=== PATIENT | male | born 1975 | race Caucasian/White ===

== ENCOUNTER 2020-03-27 09:57 | Outpatient (CLI) | payer OTHER, SELFPAY ==
--- NOTE | ~2020-03-27 | XR_ITS ---
EXAMINATION: XR finger 4th LT min 2V INDICATION: Left fourth finger pain TECHNIQUE: Four views of the left fourth finger are obtained. COMPARISON: None available FINDINGS: There is no fracture, dislocation, or subluxation. The bones, soft tissues, and joint space s are normal. IMPRESSION: 1. No acute osseous abnormality. Reviewed, dictated and finalized at location A.
== END 2020-03-27 09:58 | disposition home or self-care (01) ==
LOC: ANHIMG 10:04
PROVIDERS: PCP Family Medicine; Visit Provider Nurse Practitioner Family
DX: M79.89 Other specified soft tissue disorders (principal)
CPT/HCPCS: 73140

== ENCOUNTER 2021-01-22 14:46 | Emergency (ER) | payer OTHER, SELFPAY ==
--- NOTE | 2021-01-22 15:02 | ECG_ITS ---
Measurements Intervals [place] Rate: 63 P: 61 TX: 153 QRS: 44 QRSD: 109 T: 21 QT: 402 QTc: 413 Interpretive Statements SINUS RHYTHM INCOMPLETE RIGHT BUNDLE BRANCH BLOCK BASELINE ARTIFACT- V5 BORDERLINE ECG Electronically Signed On 01-23-2021 8:33:21 CDT by Luis Manuel Pham D.O.
[2021-01-22 15:23] VITALS: BP 152/95; PULSE 76; RESP 20; TEMP 37.1; O2SAT 100
--- NOTE | 2021-01-22 16:49 | ED.GENADULT ---
HPI - General Adult General Chief complaint: Unspecified Stated complaint: HEART RACING Time Seen by Provider: 01/22/21 15:00 Source: patient and RN notes reviewed Mode of arrival: ambulatory Limitations: no limitations History of Present Illness HPI narrative: Patient presents today complaining of one episode that lasted 15 to 20 minutes with symptoms to include lightheadedness, nausea, and increased heart rate. Patient states that during this time he was on a conference call at home when he started experiencing the symptoms. Once the symptoms began, he stood up from the chair that he was sitting in to see if this would help resolve his symptoms. He then states that he worked to calm myself down , then took a seat again when it did not. Denies chest pain, shortness of breath, dizziness, vision changes, abdominal pain, vomiting. During this 15 to 20-minute, patient also reports that he had a bit of numbness in his left fourth finger that has since resolved. This past summer he had some severe inflammation in the same finger that he is unsure if it is related. Patient denies any current symptoms. When asked how he is feeling currently patient states, pretty calm and a, complete 180 to how he was feeling earlier. He denies any cardiac history, hypertension, high cholesterol, palpitations, tachycardia. History of hyperthyroidism. MD complaint: Racing heart Related Data Allergies Allergy/AdvReac Type Severity Reaction Status Date / Time No Known Allergies Allergy Verified 04/08/20 13:01 Review of Systems Review of Systems: Narrative: CONSTITUTIONAL: Denies body aches, fever, chills, or sweats. EYES: Denies visual changes, redness, or discharge. ENT: Denies rhinorrhea, congestion, sore throat, or otalgia. CARDIOVASCULAR: Denies chest pain, palpitations, or edema.+ Racing heartbeat RESPIRATORY: Denies cough or dyspnea. GASTROINTESTINAL: Denies abdominal pain, vomiting, or diarrhea.+ Nausea GENITOURINARY: Denies dysuria or hematuria. SKIN: Denies rash, itching, or wounds. MUSCULOSKELETAL: Denies back pain, joint pain, or myalgia. NEUROLOGIC: Denies headache, tingling, or weakness.+ Lightheadedness, + numbness to left fourth finger PSYCH: Denies depression or anxiety. [facility] Past Medical History Medical History (Updated 01/22/21 @ 17:14 by Betsy Quiroga, DES, ) Hyperthyroidism Family History Family History Other Diabetes mellitus Family history of coronary artery disease Family history of malignant neoplasm of esophagus Hypertension Social History Social History Alcohol intake: current Comments At time of signature, I have reviewed and agree with nursing past medical, surgical, social and family history unless otherwise noted. Please see nursing chart for further information. There is no relevant family history pertinent to the presenting complaint Exam Narrative: Exam Narrative: GENERAL: Well-appearing, well-nourished, and in no acute distress. HEAD: Normocephalic, atraumatic. EYES: EOMI. PERRL. No redness or drainage. Conjunctivae normal. ENT: Mucous membranes pink and moist. NECK: Normal AROM. Supple. No lymphadenopathy. CHEST: No respiratory distress. Clear to auscultation. Chest is nontender. HEART: Regular rate and rhythm. No murmur, rubs, or gallops appreciated. S1 S2. Normal peripheral pulses. ABDOMEN: Soft, nontender, nondistended, normal active bowel sounds. MUSCULOSKELETAL: No bony tenderness. EXTREMITIES: Normal range of motion. No edema. Handgrips equal and strong. Distal sensation intact in all fingers of both hands. Full range of motion of all fingers. Capillary refill normal. Radial pulses normal. SKIN: Warm, dry, no rash. Capillary refill normal. Normal skin turgor. NEURO: No focal deficits. Alert and oriented x3. Gait steady. PSYCH: Normal affect. No signs o
== END 2021-01-22 15:35 | disposition home or self-care (01) ==
PROVIDERS: Emergency Provider Nurse Practitioner
DX: R00.0 Tachycardia, unspecified (principal); E05.90 Thyrotoxicosis, unspecified without thyrotoxic crisis or storm; I45.10 Unspecified right bundle-branch block
CPT/HCPCS: 93005; 99213; G0463

== ENCOUNTER 2021-02-17 12:43 | Outpatient (CLI) | payer OTHER, SELFPAY ==
--- NOTE | ~2021-02-17 | US_ITS ---
EXAMINATION: US carotid duplex BI DATE: 02/17/2021 14:13 INDICATION: Dizziness, giddiness and disturbance of skin sensation. TECHNIQUE: Grayscale, color Doppler, and pulsed Doppler images of the cervical carotid arteries were obtained. The degree of vessel stenosis is placed in one of the following categories: normal, <50%, 5 0-69%, >=70% but less than near-occlusion, near-occlusion, or total occlusion. Note that percent sten osis relative to normal distal artery lumen diameter is indirectly measured from velocity measurement s as described by Shon, et al. Radiology 2003; 229:340-346. COMPARISON: None. FINDINGS: RIGHT: The right common carotid artery (CCA) peak systolic velocity (PSV) is 117 cm/s. The right internal ca rotid artery (ICA) PSV is 134 cm/s. The right ICA end-diastolic velocity (EDV) is 31 cm/s. The right ICA/CCA PSV ratio is 1.1. Grayscale and color Doppler images including secondary Doppler criteria yie ld an estimate of <50% diameter reduction from minimal plaque in the ICA. The external carotid artery (ECA) PSV is 159 cm/s. There is antegrade flow in the right vertebral artery. LEFT: The left CCA PSV is 132 cm/s. The left ICA PSV is 109 cm/s. The left ICA EDV is 32 cm/s. The left ICA /CCA PSV ratio is 0.8. Grayscale and color Doppler images yield an estimate of <50% diameter reductio n from minimal plaque in the ICA. The ECA PSV is 121 cm/s. There is antegrade flow in the left verteb ral artery. IMPRESSION: 1. <50% stenosis from minimal plaque in the right internal carotid artery. 2. <50% stenosis from minimal plaque in the left internal carotid artery. Reviewed, dictated and finalized at location A.
--- NOTE | 2021-02-17 13:05 | ECHO_ITS ---
Patient Info Name: Rashaun Castano Age: 45 years : 1975 Gender: Male Ht: 75 in Wt: 255 lbs BSA: 2.50 m2 HR: 58 bpm BP: 136 / 88 mmHg Technical Quality: Good Exam Date: 02/17/2021 1:17 PM Exam Location: [facility] Patient Status: Outpatient Admit Date: 02/17/2021 Staff Ordering Physician: Glory Grissom [employer] Professor: Nancy Gomez RDCS Attending Provider: Glory Grissom Referring Physician: Praveena KELLY; Exam Type: CA echo doppler color flow Study Info Indications - DIZZINESS AND GIDDINESS Complete two-dimensional, color flow and Doppler transthoracic echocardiogram is performed. Summary 1. Complete two-dimensional, color flow and Doppler transthoracic echocardiogram is performed. 2. Left ventricular chamber dimension is normal. 3. Left ventricular systolic function is normal, estimated at 60-65%. 4. The left ventricular diastolic function is normal. 5. E/e' 8 is minimally elevated. 6. Circumscribed echogenic mass measuring 0.6 cm x 0.9 cm attached to mid lateral left atrial wall that is non-obstructive, could be artifact vs atrial myxoma. Consider CTA of heart or MRI of heart or ZAMZAM if clinically indicated. 7. There is trace mitral valve regurgitation. 8. No pulmonary hypertension, estimated pulmonary arterial systolic pressure is 24 mmHg. Left Ventricle E/e' 8 is minimally elevated. Left ventricular chamber dimension is normal. Left ventricular systolic function is normal, estimated at 60-65%. The left ventricular diastolic function is normal. Right Ventricle Right ventricular chamber dimension is normal. Right ventricular systolic function is normal. Left Atria Circumscribed echogenic mass measuring 0.6 cm x 0.9 cm attached to mid lateral left atrial wall that is non-obstructive, could be artifact vs atrial myxoma. Consider CTA of heart or MRI of heart or ZAMZAM if clinically indicated. Left atrial chamber dimension is normal. Right Atria Right atrial chamber dimension is normal. Aortic Valve The aortic valve is trileaflet. There is no aortic valve stenosis. There is no aortic valve regurgitation. Pulmonic Valve There is no pulmonic regurgitation. Mitral Valve There is no mitral valve stenosis. There is trace mitral valve regurgitation. Tricuspid Valve There is no tricuspid valve regurgitation. No pulmonary hypertension, estimated pulmonary arterial systolic pressure is 24 mmHg. Pericardium/Pleural There is no pericardial effusion. Inferior Vena Cava Normal inferior vena cava with >50% collapse upon inspiration consistent with normal right atrial pressure, 5 mmHg. Aorta The aortic root size at the sinus of Valsalva is normal. Left Ventricular Outflow Tract Name Value Normal LVOT 2D LVOT Diameter 2.1 cm LVOT Doppler LVOT Peak Gradient 5 mmHg LVOT Mean Gradient 3 mmHg LVOT VTI 25 cm LVOT VTI/AV VTI Ratio 1.0 LVOT Stroke Volume 84 ml LVOT CO 15.8 l/min
== END 2021-02-17 12:44 | disposition home or self-care (01) ==
PROVIDERS: PCP Family Medicine; Visit Provider Nurse Practitioner Family
DX: R42 Dizziness and giddiness (principal); R00.0 Tachycardia, unspecified
CPT/HCPCS: 93306; 93880

== ENCOUNTER 2021-02-27 14:30 | Emergency (ER) | payer OTHER, SELFPAY ==
[2021-02-27 14:33] VITALS: BP 127/87; PULSE 74; RESP 20; TEMP 36.1; O2SAT 98
[2021-02-27 16:08] VITALS: BP 120/82; PULSE 76; RESP 18; TEMP 36.7; O2SAT 100
--- NOTE | 2021-02-27 16:19 | ED.GENADULT ---
HPI - General Adult General Chief complaint: Wound/Laceration Stated complaint: FINGER LAC Time Seen by Provider: 02/27/21 15:24 Source: patient and RN notes reviewed Mode of arrival: ambulatory Limitations: no limitations History of Present Illness HPI narrative: Patient is a 45-year-old male who presents with injuries to the finger sustained from using a hedge tremor patient cut the distal phalanxes of the through fifth distal phalanxes patient notes laceration along the ulnar aspect of the nail of the fourth digit with minor abrasions to the 2 other digits. Patient notes his tetanus is not up-to-date denies other injuries or complaints Related Data Allergies Allergy/AdvReac Type Severity Reaction Status Date / Time No Known Allergies Allergy Verified 02/27/21 14:35 Review of Systems Review of Systems: All systems reviewed & are unremarkable except as noted in HPI and below PMFSH Past Medical History Medical History BMI 33.0-33.9,adult Hyperthyroidism Family History Family History Other Diabetes mellitus Family history of coronary artery disease Family history of malignant neoplasm of esophagus Hypertension Social History Social History Smoking status: Never smoker Alcohol intake: current Exam Narrative: Exam Narrative: GENERAL: Well-appearing, well-nourished, and in no acute distress. HEAD: Normocephalic, atraumatic. EYES: PERRLA and EOMI. ENT: Nares clear, no rhinorrhea or epistaxis. Mucous membranes moist. EXTREMITIES: Normal range of motion. No edema. SKIN: Warm, dry, no rash. 2 superficial abrasions of the digits involving 1 on the second digit 1 on the fourth digit patient with flap linear laceration involving the middle phalanx on the ulna side adjacent to the fingernail of the nail NEURO: No focal deficits. Alert and oriented x3. Neurovascularly intact PSYCH: Normal mood and affect. Course Vital Signs Vital signs: Vital Signs Temperature 97.0 F L 02/27/21 14:33 Pulse Rate 74 02/27/21 14:33 Respiratory Rate 20 02/27/21 14:33 Blood Pressure 127/87 02/27/21 14:33 Pulse Oximetry 98 02/27/21 14:33 Temperature 98.1 F 02/27/21 16:08 Pulse Rate 76 02/27/21 16:08 Respiratory Rate 18 02/27/21 16:08 Blood Pressure 120/82 02/27/21 16:08 Pulse Oximetry 100 02/27/21 16:08 Procedures Laceration Laceration 1: Date: 02/27/21 Time: 17:56 Site: upper extremity Side (If applicable): right Size (cm): 1 Description: linear and flap Depth: simple, single layer Local Anesthetic: other anesthetic Pre-repair: wound explored, irrigated and irrigated extensively ====== Skin Level ====== Skin layer closed with: nylon and dermabond Size (cm): 5-0 Number of sutures: 3 ====== Subcutaneous Layer ====== ====== Muscle Layer ====== ====== Tendon Layer ====== Medical Decision Making MDM Narrative Medical decision making narrative: Patients injury or pain is consistent with musculoskeletal etiology. No signs of neurological or vascular compromise on exam. Compartments and tisues are soft without signs of compartment syndrome. Pain is felt appropriate for further evaluation on an outpatient basis. Vital Signs Vital Signs: Vital Signs Temperature 97.0 F L 02/27/21 14:33 Pulse Rate 74 02/27/21 14:33 Respiratory Rate 20 02/27/21 14:33 Blood Pressure 127/87 02/27/21 14:33 Pulse Oximetry 98 02/27/21 14:33 Temperature 98.1 F 02/27/21 16:08 Pulse Rate 76 02/27/21 16:08 Respiratory Rate 18 02/27/21 16:08 Blood Pressure 120/82 02/27/21 16:08 Pulse Oximetry 100 02/27/21 16:08 Discharge Plan Discharge Clinical Impression: Finger laceration Patient Disposition: Home, Self-Care
[2021-02-27] MEDS: TETANUS,DIPHTHERIA,AC PERTUSSIS ADULT (0.5 ML) BOOSTRIX IM (16:40)
--- NOTE | 2021-02-27 16:43 | PC.NURSE ---
LET applied by the EDPA
[2021-02-27 18:24] VITALS: BP 114/72; PULSE 71; RESP 18; TEMP 36.8; O2SAT 100
== END 2021-02-27 18:24 | disposition home or self-care (01) ==
PROVIDERS: Emergency Provider Emergency Medicine; PCP Family Medicine
DX: S61.214A Laceration without foreign body of right ring finger without damage to nail, initial encounter (principal); Z23 Encounter for immunization; E05.90 Thyrotoxicosis, unspecified without thyrotoxic crisis or storm; W29.3XXA Contact with powered garden and outdoor hand tools and machinery, initial encounter
CPT/HCPCS: 12001; 90471; 90715; 99282